=== PATIENT | male | born 1960 | race Two or more races ===

== ENCOUNTER 2017-12-17 21:31 | Inpatient (IN) | payer MEDICAID ==
[~2017-12-17] VITALS: Ht 167.6 cm; Wt 82.6 kg
[2017-12-17 21:57] LABS: BASOPHILS % (AUTO) 0.1 % (0-1); EOSINOPHILS # (AUTO) 0.2 X10'3 (0-0.9); EOSINOPHILS % (AUTO) 1.4 % (0-6); LYMPHOCYTES # (AUTO) 1.1 X10'3 (1.1-4.8); LYMPHOCYTES % (AUTO) 8.5 % (21-51); MEAN CORPUSCULAR HEMOGLOBIN 29.9 PG (27.0-31.0); MEAN CORPUSCULAR HGB CONC 33.8 % (33.0-36.5); MEAN CORPUSCULAR VOLUME 88.6 FL (78-98); MEAN PLATELET VOLUME 8.6 FL (7.4-10.4); MONOCYTES # (AUTO) 0.2 X10'3 (0-0.9); MONOCYTES % (AUTO) 1.6 % (2-12); NEUTROPHILS # (AUTO) 11.5 X10'3 (1.8-7.7); NEUTROPHILS % (AUTO) 88.4 % (42-75); PLATELET COUNT 292 X10'3 (140-440); RED BLOOD COUNT 2.34 X10'6 (4.70-6.10); RED CELL DISTRIBUTION WIDTH 16.2 % (11.5-14.5)
[2017-12-17 22:07] LABS: HEMATOCRIT 20.7 % (42.0-52.0)
[2017-12-17 22:10] LABS: PARTIAL THROMBOPLASTIN TIME 26 SECONDS (22-32); PROTHROMBIN TIME 10.1 SECONDS (9.0-12.0)
[2017-12-17 23:15] LABS: LACTIC SEPSIS 0.4 MMOL/L (0.4-2.0)
[2017-12-17 23:17] LABS: ALANINE AMINOTRANSFERASE 67 U/L (12-78); ALBUMIN 2.3 G/DL (3.4-5.0); ALBUMIN/GLOBULIN RATIO 0.6 (1.1-1.5); ALKALINE PHOSPHATASE 133 IU/L (46-116); ANION GAP 11 (8-16); ASPARTATE AMINO TRANSFERASE 30 U/L (10-37); BILIRUBIN,TOTAL 0.3 MG/DL (0.1-1.0); BLOOD UREA NITROGEN 81 MG/DL (7-18); CALCIUM 7.7 MG/DL (8.5-10.1); CHLORIDE 113 MMOL/L (99-107); GLUCOSE 126 MG/DL (70-104); POTASSIUM 5.9 MMOL/L (3.5-5.1); SODIUM 139 MMOL/L (135-145); TOTAL CARBON DIOXIDE 15.4 MMOL/L (24-32); TOTAL PROTEIN 6.2 G/DL (6.4-8.2); eGFR 14 ML/MIN
[2017-12-17 23:23] VITALS: BP 173/78
[2017-12-17 23:38] VITALS: BP 164/78
[2017-12-18] VITALS (25 sets, daily range): BP systolic 148–200; BP diastolic 63–104
[2017-12-18 00:09] LABS: LIPASE 264 U/L (73-393)
[2017-12-18] MEDS ORDERED: ondansetron/PF 4mg/2ml inj IV ONE (00:20)
[2017-12-18] MEDS ORDERED: morphine 2 MG/ML inj. syringe IV ONE (00:20)
[2017-12-18] MEDS ORDERED: pantoprazole 40 MG vial IV ONE (00:25)
[2017-12-18] MEDS: pantoprazole 40MG/NS 100ML BAG 100 ML IV SCH ×2 (00:44→05:32)
[2017-12-18] MEDS ORDERED: glucagon, human recombinant 1mg kit SUBCUT PRN (00:45)
[2017-12-18] MEDS ORDERED: dextrose 50%-water 50ml dispensing syringe IV PRN ×2 (00:45)
[2017-12-18] MEDS ORDERED: ondansetron/PF 4mg/2ml inj IV PRN (00:45)
[2017-12-18] MEDS ORDERED: MESSAGE TO PHARMACY PO ONE (00:45)
[2017-12-18] MEDS ORDERED: dextrose ORAL solution 15 GM/59 ML bottle PO PRN ×2 (00:45)
[2017-12-18] MEDS ORDERED: acetaminophen 325mg tablet PO PRN ×2 (00:45)
[2017-12-18] MEDS ORDERED: sodium bicarbonate (8.4%) inj. 150 MEQ in dextrose 5%-water 1,000 ML IV SCH (00:50)
[2017-12-18] MEDS ORDERED: DILT240C PO (02:26)
[2017-12-18] MEDS ORDERED: GLIM1TAB46 PO (02:27)
[2017-12-18] MEDS ORDERED: ATOR80TA PO (02:28)
[2017-12-18] MEDS ORDERED: VALS1TAB79 PO (02:29)
[2017-12-18] MEDS ORDERED: EMPA10TA PO (02:29)
[2017-12-18] MEDS: morphine 2 MG/ML inj. syringe IV PRN ×4 (02:36→15:04)
[2017-12-18] MEDS ORDERED: sodium bicarbonate (8.4%) 1 mEq/ml syringe ONE (03:05)
[2017-12-18 05:41] LABS: BASOPHILS % (AUTO) 0.1 % (0-1); EOSINOPHILS # (AUTO) 0.2 X10'3 (0-0.9); EOSINOPHILS % (AUTO) 1.5 % (0-6); HEMATOCRIT 28.4 % (42.0-52.0); HEMOGLOBIN 9.8 g/dl (14.0-17.9); LYMPHOCYTES # (AUTO) 1.6 X10'3 (1.1-4.8); LYMPHOCYTES % (AUTO) 13.8 % (21-51); MEAN CORPUSCULAR HEMOGLOBIN 30.6 PG (27.0-31.0); MEAN CORPUSCULAR HGB CONC 34.3 % (33.0-36.5); MEAN CORPUSCULAR VOLUME 89.2 FL (78-98); MEAN PLATELET VOLUME 8.6 FL (7.4-10.4); MONOCYTES # (AUTO) 0.6 X10'3 (0-0.9); MONOCYTES % (AUTO) 4.8 % (2-12); NEUTROPHILS # (AUTO) 9.5 X10'3 (1.8-7.7); NEUTROPHILS % (AUTO) 79.8 % (42-75); PLATELET COUNT 259 X10'3 (140-440); RED BLOOD COUNT 3.19 X10'6 (4.70-6.10); RED CELL DISTRIBUTION WIDTH 15.4 % (11.5-14.5); WHITE BLOOD COUNT 11.9 X10'3 (4.5-11.0)
[2017-12-18 05:59] LABS: ALANINE AMINOTRANSFERASE 63 U/L (12-78); ALBUMIN 2.2 G/DL (3.4-5.0); ALBUMIN/GLOBULIN RATIO 0.6 (1.1-1.5); ALKALINE PHOSPHATASE 128 IU/L (46-116); ANION GAP 12 (8-16); ASPARTATE AMINO TRANSFERASE 29 U/L (10-37); BILIRUBIN,TOTAL 0.3 MG/DL (0.1-1.0); BLOOD UREA NITROGEN 77 MG/DL (7-18); BUN/CREATININE RATIO 17.5 (5.4-32.0); CALCIUM 7.8 MG/DL (8.5-10.1); CHLORIDE 115 MMOL/L (99-107); GLUCOSE 85 MG/DL (70-104); MAGNESIUM 1.8 MG/DL (1.5-2.4); PHOSPHORUS 4.8 MG/DL (2.3-4.5); POTASSIUM 5.8 MMOL/L (3.5-5.1); SODIUM 143 MMOL/L (135-145); TOTAL CARBON DIOXIDE 16.5 MMOL/L (24-32); TOTAL PROTEIN 5.9 G/DL (6.4-8.2); eGFR 14 ML/MIN
[2017-12-18] MEDS: diltiazem CD 120mg capsule (once-daily) PO SCH (08:47)
[2017-12-18] MEDS: HYDROchlorothiazide 12.5mg capsule PO SCH (08:47)
[2017-12-18 10:26] LABS: CLARITY,URINE CLEAR (Clear); COLOR,URINE STRAW (Yellow); GLUCOSE, URINE 500 mg/dl (Neg); KETONES,URINE NEGATIVE (Neg); LEUKOCYTE ESTERASE ,URINE NEGATIVE (Neg); NITRITES, URINE NEGATIVE (Neg); OCCULT BLOOD,URINE MODERATE (Neg); PH,URINE 6.5 (4.8-8.0); PROTEIN,URINE >=300 mg/dl (Neg); UROBILINOGEN,URINE 0.2 E.U/dL (0.2-1.0)
[2017-12-18 10:32] LABS: UA COLLECTION TYPE NON-SPECIFIED
[2017-12-18 10:33] LABS: BACTERIA,URINE NONE SEEN /HPF (Neg); MUCUS STRANDS NONE SEEN /LPF (Neg); RBC,URINE 0-2 /HPF (0-2); SQUAMOUS EPITHELIAL CELL,UR NONE SEEN /LPF (FEW); WBC,URINE NONE SEEN /HPF (0-4)
[2017-12-18] MEDS: sodium bicarbonate (8.4%) inj. 100 MEQ in dextrose 5%-water 1,000 ML IV SCH ×2 (14:17→21:00)
[2017-12-18] MEDS: pantoprazole 40mg Tablet.DR PO SCH (20:59)
[2017-12-18] MEDS: atorvastatin 20mg tablet PO SCH (20:59)
[2017-12-18] MEDS: insulin glargine (Lantus) pen - multi-dose SQ SCH (21:06)
[2017-12-19] VITALS: BP 186/93
[2017-12-19] MEDS: sodium bicarbonate (8.4%) inj. 100 MEQ in dextrose 5%-water 1,000 ML IV SCH ×2 (01:30→13:40)
[2017-12-19 06:08] LABS: BASOPHILS # (AUTO) 0.1 X10'3 (0-0.2); BASOPHILS % (AUTO) 0.5 % (0-1); EOSINOPHILS # (AUTO) 0.6 X10'3 (0-0.9); EOSINOPHILS % (AUTO) 5.4 % (0-6); HEMATOCRIT 26.6 % (42.0-52.0); LYMPHOCYTES # (AUTO) 2.9 X10'3 (1.1-4.8); LYMPHOCYTES % (AUTO) 26.1 % (21-51); MEAN CORPUSCULAR HEMOGLOBIN 30.3 PG (27.0-31.0); MEAN CORPUSCULAR HGB CONC 33.9 % (33.0-36.5); MEAN CORPUSCULAR VOLUME 89.4 FL (78-98); MEAN PLATELET VOLUME 8.3 FL (7.4-10.4); MONOCYTES # (AUTO) 0.9 X10'3 (0-0.9); MONOCYTES % (AUTO) 8.2 % (2-12); NEUTROPHILS # (AUTO) 6.6 X10'3 (1.8-7.7); NEUTROPHILS % (AUTO) 59.8 % (42-75); PLATELET COUNT 248 X10'3 (140-440); RED BLOOD COUNT 2.97 X10'6 (4.70-6.10); RED CELL DISTRIBUTION WIDTH 15.4 % (11.5-14.5)
[2017-12-19 06:34] LABS: ALANINE AMINOTRANSFERASE 48 U/L (12-78); ALBUMIN 1.9 G/DL (3.4-5.0); ALBUMIN/GLOBULIN RATIO 0.5 (1.1-1.5); ALKALINE PHOSPHATASE 120 IU/L (46-116); AMYLASE 92 U/L (25-115); ANION GAP 8 (8-16); ASPARTATE AMINO TRANSFERASE 23 U/L (10-37); BILIRUBIN,TOTAL 0.2 MG/DL (0.1-1.0); BLOOD UREA NITROGEN 66 MG/DL (7-18); BUN/CREATININE RATIO 15.3 (5.4-32.0); CALCIUM 7.5 MG/DL (8.5-10.1); CHLORIDE 109 MMOL/L (99-107); GLUCOSE 168 MG/DL (70-104); LIPASE 164 U/L (73-393); MAGNESIUM 1.7 MG/DL (1.5-2.4); PHOSPHORUS 4.7 MG/DL (2.3-4.5); SODIUM 140 MMOL/L (135-145); TOTAL CARBON DIOXIDE 23.3 MMOL/L (24-32); TOTAL PROTEIN 5.4 G/DL (6.4-8.2); eGFR 14 ML/MIN
[2017-12-19 07:00] VITALS: BP 165/87
[2017-12-19] MEDS ORDERED: pantoprazole 40mg Tablet.DR PO SCH (07:30)
[2017-12-19] MEDS: HYDROchlorothiazide 12.5mg capsule PO SCH (09:04)
[2017-12-19] MEDS: diltiazem CD 120mg capsule (once-daily) PO SCH (09:04)
[2017-12-19] MEDS: pantoprazole 40mg Tablet.DR PO SCH ×2 (09:04→20:10)
[2017-12-19] MEDS: insulin Lispro (HumaLOG) vial - multi-dose SQ SCH ×3 (09:09→18:50)
[2017-12-19] MEDS ORDERED: FLU VACC QS2017-18 36MOS UP/PF 60 MCG/0.5 ML SYRINGE IMVAC ONE (10:00)
[2017-12-19] MEDS ORDERED: pneumococcal 23-VAL P-sac vacc 25 mcg/0.5ml vial IMVAC ONE (10:00)
[2017-12-19 14:23] LABS: CLARITY,URINE CLEAR (Clear); COLOR,URINE YELLOW (Yellow); GLUCOSE, URINE 500 mg/dl (Neg); KETONES,URINE NEGATIVE (Neg); LEUKOCYTE ESTERASE ,URINE NEGATIVE (Neg); NITRITES, URINE NEGATIVE (Neg); OCCULT BLOOD,URINE MODERATE (Neg); PROTEIN,URINE >=300 mg/dl (Neg); UROBILINOGEN,URINE 0.2 E.U/dL (0.2-1.0)
[2017-12-19 14:26] LABS: TOTAL PROTEIN,URINE RANDOM 538.2 MG/DL
[2017-12-19 14:39] LABS: UA COLLECTION TYPE VOIDED
[2017-12-19 14:40] LABS: BACTERIA,URINE NONE SEEN /HPF (Neg); RBC,URINE 0-2 /HPF (0-2)
[2017-12-19 14:42] LABS: WBC,URINE 0-4 /HPF (0-4)
[2017-12-19 14:44] LABS: MUCUS STRANDS NONE SEEN /LPF (Neg); SQUAMOUS EPITHELIAL CELL,UR NONE SEEN /LPF (FEW)
[2017-12-19 15:23] LABS: UA EOSINOPHILS NO EOS /HPF
[2017-12-19] MEDS: normal saline 1000ml 1,000 ML IV SCH ×2 (16:59→20:10)
[2017-12-19 20:00] VITALS: BP 166/77
[2017-12-19] MEDS: atorvastatin 20mg tablet PO SCH (20:10)
[2017-12-19] MEDS: insulin glargine (Lantus) pen - multi-dose SQ SCH (21:08)
[2017-12-20] VITALS (16 sets, daily range): BP systolic 127–198; BP diastolic 67–99
[2017-12-20 05:33] LABS: BASOPHILS % (AUTO) 0.4 % (0-1); EOSINOPHILS # (AUTO) 0.7 X10'3 (0-0.9); EOSINOPHILS % (AUTO) 5.5 % (0-6); HEMATOCRIT 26.5 % (42.0-52.0); HEMOGLOBIN 9.2 g/dl (14.0-17.9); LYMPHOCYTES # (AUTO) 2.5 X10'3 (1.1-4.8); LYMPHOCYTES % (AUTO) 19.2 % (21-51); MEAN CORPUSCULAR HEMOGLOBIN 30.7 PG (27.0-31.0); MEAN CORPUSCULAR HGB CONC 34.8 % (33.0-36.5); MEAN CORPUSCULAR VOLUME 88.1 FL (78-98); MEAN PLATELET VOLUME 8.5 FL (7.4-10.4); MONOCYTES # (AUTO) 0.9 X10'3 (0-0.9); NEUTROPHILS # (AUTO) 8.9 X10'3 (1.8-7.7); NEUTROPHILS % (AUTO) 67.9 % (42-75); PLATELET COUNT 244 X10'3 (140-440); RED BLOOD COUNT 3.01 X10'6 (4.70-6.10); RED CELL DISTRIBUTION WIDTH 14.8 % (11.5-14.5); WHITE BLOOD COUNT 13.1 X10'3 (4.5-11.0)
[2017-12-20 05:43] LABS: ALANINE AMINOTRANSFERASE 40 U/L (12-78); ALBUMIN 1.9 G/DL (3.4-5.0); ALBUMIN/GLOBULIN RATIO 0.5 (1.1-1.5); ALKALINE PHOSPHATASE 126 IU/L (46-116); AMYLASE 91 U/L (25-115); ANION GAP 8 (8-16); ASPARTATE AMINO TRANSFERASE 26 U/L (10-37); BILIRUBIN,TOTAL 0.2 MG/DL (0.1-1.0); BLOOD UREA NITROGEN 63 MG/DL (7-18); CALCIUM 7.5 MG/DL (8.5-10.1); CHLORIDE 108 MMOL/L (99-107); GLUCOSE 92 MG/DL (70-104); LIPASE 114 U/L (73-393); MAGNESIUM 1.4 MG/DL (1.5-2.4); PHOSPHORUS 5.1 MG/DL (2.3-4.5); SODIUM 141 MMOL/L (135-145); TOTAL CARBON DIOXIDE 25.2 MMOL/L (24-32); TOTAL PROTEIN 5.5 G/DL (6.4-8.2); eGFR 15 ML/MIN
[2017-12-20 05:48] LABS: POTASSIUM 4.9 MMOL/L (3.5-5.1)
[2017-12-20] MEDS: diltiazem CD 120mg capsule (once-daily) PO SCH (07:58)
[2017-12-20] MEDS: pantoprazole 40mg Tablet.DR PO SCH ×2 (07:58→20:01)
[2017-12-20] MEDS: HYDROchlorothiazide 12.5mg capsule PO SCH (07:58)
[2017-12-20] MEDS ORDERED: fentaNYL/PF 50MCG/1 ML 2ML syringe ONE (12:15)
[2017-12-20] MEDS ORDERED: MIDAZolam 1mg/ml 10ml vial ONE (12:15)
[2017-12-20] MEDS ORDERED: LIDOcaine Viscous 15ml cup ONE (12:15)
[2017-12-20] MEDS ORDERED: normal saline 1000ml 1,000 ML IV SCH (14:14)
[2017-12-20] MEDS ORDERED: fentaNYL/PF 50MCG/1 ML 2ML syringe IV PRN (14:15)
[2017-12-20] MEDS ORDERED: MIDAZolam 1mg/ml 10ml vial IV PRN (14:15)
[2017-12-20] MEDS ORDERED: LIDOcaine Viscous 15ml cup PO ONE (14:15)
[2017-12-20] MEDS ORDERED: PEG 3350/Na sulf,bicarb,Cl/KCl oral sol 4 liter bottle PO ONE (16:00)
[2017-12-20] MEDS: morphine 2 MG/ML inj. syringe IV PRN (16:45)
[2017-12-20] MEDS: atorvastatin 20mg tablet PO SCH (20:01)
[2017-12-20] MEDS: insulin glargine (Lantus) pen - multi-dose SQ SCH (20:05)
[2017-12-21] VITALS (10 sets, daily range): BP systolic 163–201; BP diastolic 73–112
[2017-12-21 05:20] LABS: BASOPHILS % (AUTO) 0.4 % (0-1); EOSINOPHILS # (AUTO) 0.6 X10'3 (0-0.9); EOSINOPHILS % (AUTO) 6.2 % (0-6); HEMATOCRIT 25.2 % (42.0-52.0); HEMOGLOBIN 8.9 g/dl (14.0-17.9); LYMPHOCYTES # (AUTO) 1.9 X10'3 (1.1-4.8); LYMPHOCYTES % (AUTO) 20.5 % (21-51); MEAN CORPUSCULAR HEMOGLOBIN 30.8 PG (27.0-31.0); MEAN CORPUSCULAR HGB CONC 35.2 % (33.0-36.5); MEAN CORPUSCULAR VOLUME 87.4 FL (78-98); MEAN PLATELET VOLUME 8.2 FL (7.4-10.4); MONOCYTES # (AUTO) 0.9 X10'3 (0-0.9); MONOCYTES % (AUTO) 9.4 % (2-12); NEUTROPHILS % (AUTO) 63.5 % (42-75); PLATELET COUNT 235 X10'3 (140-440); RED BLOOD COUNT 2.88 X10'6 (4.70-6.10); WHITE BLOOD COUNT 9.4 X10'3 (4.5-11.0)
[2017-12-21 05:44] LABS: ALANINE AMINOTRANSFERASE 39 U/L (12-78); ALBUMIN 1.8 G/DL (3.4-5.0); ALBUMIN/GLOBULIN RATIO 0.5 (1.1-1.5); ALKALINE PHOSPHATASE 133 IU/L (46-116); AMYLASE 74 U/L (25-115); ANION GAP 8 (8-16); ASPARTATE AMINO TRANSFERASE 22 U/L (10-37); BILIRUBIN,TOTAL 0.3 MG/DL (0.1-1.0); BLOOD UREA NITROGEN 56 MG/DL (7-18); CALCIUM 7.6 MG/DL (8.5-10.1); CHLORIDE 109 MMOL/L (99-107); GLUCOSE 117 MG/DL (70-104); LIPASE 109 U/L (73-393); MAGNESIUM 1.4 MG/DL (1.5-2.4); PHOSPHORUS 4.6 MG/DL (2.3-4.5); SODIUM 142 MMOL/L (135-145); TOTAL PROTEIN 5.2 G/DL (6.4-8.2); eGFR 16 ML/MIN
[2017-12-21] MEDS: pantoprazole 40mg Tablet.DR PO SCH ×2 (07:48→21:15)
[2017-12-21] MEDS: HYDROchlorothiazide 12.5mg capsule PO SCH (07:48)
[2017-12-21] MEDS: diltiazem CD 120mg capsule (once-daily) PO SCH (07:49)
[2017-12-21] MEDS: normal saline 1000ml 1,000 ML IV SCH (07:51)
[2017-12-21] MEDS ORDERED: MIDAZolam 1mg/ml 10ml vial ONE (14:37)
[2017-12-21] MEDS ORDERED: fentaNYL/PF 50MCG/1 ML 2ML syringe ONE (14:37)
[2017-12-21] MEDS: furosemide 10 MG/1 ML 10ml inj IV SCH ×2 (17:35→21:18)
[2017-12-21] MEDS: cloNIDine 0.1 mg tablet PO SCH ×2 (17:35→21:16)
[2017-12-21] MEDS ORDERED: normal saline 1000ml 1,000 ML IV SCH (17:54)
[2017-12-21] MEDS ORDERED: fentaNYL/PF 50MCG/1 ML 2ML syringe IV PRN (17:55)
[2017-12-21] MEDS ORDERED: MIDAZolam 1mg/ml 10ml vial IV PRN (17:55)
[2017-12-21] MEDS ORDERED: simethicone 40mg/0.6ml oral drops 30ml MC ONE (17:55)
[2017-12-21] MEDS: insulin glargine (Lantus) pen - multi-dose SQ SCH (21:00)
[2017-12-21] MEDS: atorvastatin 20mg tablet PO SCH (21:15)
[2017-12-21] MEDS: morphine 2 MG/ML inj. syringe IV PRN (21:23)
[2017-12-22] VITALS: BP 129/72
[2017-12-22] MEDS: morphine 2 MG/ML inj. syringe IV PRN (00:36)
[2017-12-22 05:18] LABS: BASOPHILS % (AUTO) 0.4 % (0-1); EOSINOPHILS # (AUTO) 0.6 X10'3 (0-0.9); EOSINOPHILS % (AUTO) 6.3 % (0-6); HEMATOCRIT 24.6 % (42.0-52.0); HEMOGLOBIN 8.6 g/dl (14.0-17.9); LYMPHOCYTES # (AUTO) 2.7 X10'3 (1.1-4.8); LYMPHOCYTES % (AUTO) 28.6 % (21-51); MEAN CORPUSCULAR HEMOGLOBIN 30.7 PG (27.0-31.0); MEAN CORPUSCULAR HGB CONC 34.7 % (33.0-36.5); MEAN CORPUSCULAR VOLUME 88.3 FL (78-98); MEAN PLATELET VOLUME 8.2 FL (7.4-10.4); MONOCYTES # (AUTO) 0.9 X10'3 (0-0.9); MONOCYTES % (AUTO) 9.9 % (2-12); NEUTROPHILS # (AUTO) 5.1 X10'3 (1.8-7.7); NEUTROPHILS % (AUTO) 54.8 % (42-75); PLATELET COUNT 219 X10'3 (140-440); RED BLOOD COUNT 2.79 X10'6 (4.70-6.10); WHITE BLOOD COUNT 9.3 X10'3 (4.5-11.0)
[2017-12-22 05:36] LABS: ALANINE AMINOTRANSFERASE 33 U/L (12-78); ALBUMIN 1.6 G/DL (3.4-5.0); ALBUMIN/GLOBULIN RATIO 0.4 (1.1-1.5); ALKALINE PHOSPHATASE 133 IU/L (46-116); ANION GAP 7 (8-16); ASPARTATE AMINO TRANSFERASE 20 U/L (10-37); BILIRUBIN,TOTAL 0.3 MG/DL (0.1-1.0); BLOOD UREA NITROGEN 55 MG/DL (7-18); BUN/CREATININE RATIO 13.6 (5.4-32.0); CALCIUM 7.5 MG/DL (8.5-10.1); CHLORIDE 108 MMOL/L (99-107); CREATININE 4.04 MG/DL (0.60-1.10); GLUCOSE 110 MG/DL (70-104); MAGNESIUM 1.5 MG/DL (1.5-2.4); PHOSPHORUS 5.1 MG/DL (2.3-4.5); POTASSIUM 5.6 MMOL/L (3.5-5.1); SODIUM 140 MMOL/L (135-145); TOTAL CARBON DIOXIDE 25.5 MMOL/L (24-32); TOTAL PROTEIN 5.2 G/DL (6.4-8.2); eGFR 15 ML/MIN
[2017-12-22 07:17] VITALS: BP 163/79
[2017-12-22] MEDS: furosemide 10 MG/1 ML 10ml inj IV SCH (07:36)
[2017-12-22] MEDS: cloNIDine 0.1 mg tablet PO SCH (07:37)
[2017-12-22] MEDS: diltiazem CD 120mg capsule (once-daily) PO SCH (07:37)
[2017-12-22] MEDS: pantoprazole 40mg Tablet.DR PO SCH (07:37)
[2017-12-22 11:15] VITALS: BP 149/77
[2017-12-22] MEDS ORDERED: FURO40TA4 PO (16:22)
[2017-12-22] MEDS ORDERED: PANT40TA4 PO (16:22)
[2017-12-22] MEDS ORDERED: CLON0.1T20 PO (16:22)
== END 2017-12-22 17:30 | disposition home or self-care (01) | DRG 253 ==
LOC: ER 21:33 → ED HOLD 12-18 00:43 → ICU 2S 12-18 01:57 → SUR 3N 12-18 22:51
PROVIDERS: ADMIT Internal Medicine Critical Care Medicine; ATTEND Internal Medicine Critical Care Medicine
PROC: 30233N1 Transfusion of Nonautologous Red Blood Cells into Peripheral Vein, Percutaneous Approach (ICD-10-PCS; 2017-12-17)
PROC: 0DB98ZX Excision of Duodenum, Via Natural or Artificial Opening Endoscopic, Diagnostic (ICD-10-PCS; principal; 2017-12-20)
PROC: 0DB68ZX Excision of Stomach, Via Natural or Artificial Opening Endoscopic, Diagnostic (ICD-10-PCS; 2017-12-20)
PROC: 0DBL8ZZ Excision of Transverse Colon, Via Natural or Artificial Opening Endoscopic (ICD-10-PCS; 2017-12-21)
DX: K55.21 Angiodysplasia of colon with hemorrhage (principal); K85.90 Acute pancreatitis without necrosis or infection, unspecified; E87.2 Acidosis; N18.4 Chronic kidney disease, stage 4 (severe); E11.22 Type 2 diabetes mellitus with diabetic chronic kidney disease; N17.9 Acute kidney failure, unspecified; D62 Acute posthemorrhagic anemia; K29.70 Gastritis, unspecified, without bleeding; K63.5 Polyp of colon; I48.0 Paroxysmal atrial fibrillation; E87.5 Hyperkalemia; K64.8 Other hemorrhoids; K29.80 Duodenitis without bleeding; I12.9 Hypertensive chronic kidney disease with stage 1 through stage 4 chronic kidney disease, or unspecified chronic kidney disease; E11.649 Type 2 diabetes mellitus with hypoglycemia without coma; E87.8 Other disorders of electrolyte and fluid balance, not elsewhere classified; Z79.84 Long term (current) use of oral hypoglycemic drugs; Z79.899 Other long term (current) drug therapy; Z87.891 Personal history of nicotine dependence; Z23 Encounter for immunization
CPT/HCPCS: 36415; 43239; 45380; 45382; 45385; 71250; 74176; 76700; 80053; 81001; 82140; 82150; 82570; 82948; 83036; 83605; 83690; 83735; 83880; 84100; 84133; 84156; 84300; 84540; 85025; 85610; 85730; 86885; 86900; 86901; 86920; 87040; 87070; 87088; 87207; 96375; 99285; A4620; A6213; A6258; C9113; G0500; J1815; J1940; J2250; J2270; J2405; J3010; J7030; J7070; P9016

== ENCOUNTER 2018-02-02 17:54 | Inpatient (IN) | payer BC, MEDICAID ==
[~2018-02-02] VITALS: Ht 167.6 cm; Wt 86.4 kg
[~2018-02-02 17:54] MED LIST: ATOR80TA PO; CLON0.1T20 PO; DILT240C PO; EMPA10TA PO; FURO40TA4 PO; GLIM1TAB46 PO; PANT40TA4 PO; VALS1TAB79 PO
[2018-02-02 18:40] LABS: BASOPHILS % (AUTO) 0.3 % (0-1); EOSINOPHILS # (AUTO) 0.4 X10'3 (0-0.9); EOSINOPHILS % (AUTO) 4.6 % (0-6); HEMOGLOBIN 7.2 g/dl (14.0-17.9); LYMPHOCYTES # (AUTO) 2.3 X10'3 (1.1-4.8); LYMPHOCYTES % (AUTO) 26.2 % (21-51); MEAN CORPUSCULAR HEMOGLOBIN 29.7 PG (27.0-31.0); MEAN CORPUSCULAR HGB CONC 33.4 % (33.0-36.5); MEAN CORPUSCULAR VOLUME 88.9 FL (78-98); MEAN PLATELET VOLUME 8.4 FL (7.4-10.4); MONOCYTES # (AUTO) 0.6 X10'3 (0-0.9); MONOCYTES % (AUTO) 7.4 % (2-12); NEUTROPHILS # (AUTO) 5.4 X10'3 (1.8-7.7); NEUTROPHILS % (AUTO) 61.5 % (42-75); PLATELET COUNT 286 X10'3 (140-440); RED BLOOD COUNT 2.43 X10'6 (4.70-6.10); RED CELL DISTRIBUTION WIDTH 15.5 % (11.5-14.5); WHITE BLOOD COUNT 8.8 X10'3 (4.5-11.0)
[2018-02-02 18:40] LABS: CLARITY,URINE CLEAR (Clear); COLOR,URINE YELLOW (Yellow); GLUCOSE, URINE 250 mg/dl (Neg); KETONES,URINE NEGATIVE (Neg); LEUKOCYTE ESTERASE ,URINE NEGATIVE (Neg); NITRITES, URINE NEGATIVE (Neg); OCCULT BLOOD,URINE MODERATE (Neg); PROTEIN,URINE >=300 mg/dl (Neg); UROBILINOGEN,URINE 0.2 E.U/dL (0.2-1.0)
[2018-02-02 18:47] LABS: HEMATOCRIT 21.6 % (42.0-52.0)
[2018-02-02 18:49] LABS: UA COLLECTION TYPE CLN CATCH MIDSTREAM
[2018-02-02 18:50] LABS: PROTHROMBIN TIME 10.5 SECONDS (9.0-12.0)
[2018-02-02 18:54] LABS: RBC,URINE 0-2 /HPF (0-2); WBC,URINE NONE SEEN /HPF (0-4)
[2018-02-02 18:55] LABS: BACTERIA,URINE NONE SEEN /HPF (Neg); SQUAMOUS EPITHELIAL CELL,UR NONE SEEN /LPF (FEW)
[2018-02-02 18:56] LABS: ALANINE AMINOTRANSFERASE 37 U/L (12-78); ALBUMIN/GLOBULIN RATIO 0.5 (1.1-1.5); ALKALINE PHOSPHATASE 189 IU/L (46-116); ANION GAP 14 (8-16); ASPARTATE AMINO TRANSFERASE 24 U/L (10-37); BILIRUBIN,TOTAL 0.2 MG/DL (0.1-1.0); BLOOD UREA NITROGEN 100 MG/DL (7-18); CALCIUM 6.7 MG/DL (8.5-10.1); CHLORIDE 110 MMOL/L (99-107); CREATININE 5.89 MG/DL (0.60-1.10); GLUCOSE 130 MG/DL (70-104); SODIUM 141 MMOL/L (135-145); TOTAL CARBON DIOXIDE 16.9 MMOL/L (24-32); TOTAL PROTEIN 6.4 G/DL (6.4-8.2); eGFR 10 ML/MIN
[2018-02-02] MEDS ORDERED: normal saline 1000ML IV soln IVB ONE (19:45)
[2018-02-02] MEDS ORDERED: calcium chloride inj. 1,000 MG in normal saline 100ml IV soln 90 ML IV ONE (19:50)
[2018-02-02] MEDS ORDERED: furosemide 10 MG/1 ML 10ml inj IV ONE (19:50)
[2018-02-02] MEDS ORDERED: labetalol 20mg/4ml (5mg/ml) syringe IV ONE (19:55)
[2018-02-02] MEDS ORDERED: pantoprazole IV 80 MG in normal saline 100ml IV soln 100 ML IV ONE (19:55)
[2018-02-02] MEDS ORDERED: pantoprazole 40MG/NS 100ML BAG 100 ML IV ONE (19:55)
[2018-02-02] MEDS ORDERED: temazepam 15mg capsule PO PRN (21:00)
[2018-02-02] MEDS ORDERED: pantoprazole 40 MG vial IV ONE (21:10)
[2018-02-02 21:24] LABS: TOTAL PROTEIN,URINE RANDOM 513.3 MG/DL
[2018-02-02] MEDS ORDERED: sodium polystyrene sulfonate 15gm/60ml oral suspension PO ONE (21:30)
[2018-02-02 21:46] LABS: MAGNESIUM 1.6 MG/DL (1.5-2.4); PHOSPHORUS 5.9 MG/DL (2.3-4.5)
[2018-02-02] MEDS ORDERED: ondansetron/PF 4mg/2ml inj IV PRN (21:50)
[2018-02-02] MEDS ORDERED: mag hydrox/Alum hydrox/simeth 30ml oral suspension PO PRN (21:50)
[2018-02-02] MEDS ORDERED: magnesium 4gm in 100ml NS 100 ML IV PRN (21:50)
[2018-02-02] MEDS ORDERED: potassium Cl 20 mEq SR tablet PO PRN ×2 (21:50)
[2018-02-02] MEDS ORDERED: acetaminophen 325mg tablet PO PRN (21:50)
[2018-02-02] MEDS ORDERED: magnesium hydroxide 30ml (MOM) UD suspension PO PRN (21:50)
[2018-02-02] MEDS ORDERED: magnesium 2GM in 50ml NS 50 ML IV PRN (21:50)
[2018-02-02] MEDS ORDERED: potassium Cl 40MEQ/NS 500ml 500 ML IV PRN ×2 (21:50)
[2018-02-02] MEDS: sodium chloride 0.45% 1,000 ML IV SCH (22:00)
[2018-02-02 22:35] LABS: UA EOSINOPHILS NO EOS /HPF
[2018-02-02 23:57] VITALS: BP 175/92
[2018-02-03] VITALS (14 sets, daily range): BP systolic 145–209; BP diastolic 60–97
[2018-02-03] MEDS ORDERED: heparin, porcine 5000 units/ml vial SQ SCH
[2018-02-03] MEDS ORDERED: amLODIPine 5mg tablet PO ONE (00:50)
[2018-02-03] MEDS: sodium chloride 0.45% 1,000 ML IV SCH ×2 (06:30→20:13)
[2018-02-03] MEDS: diltiazem CD 120mg capsule (once-daily) PO SCH ×2 (06:42→09:49)
[2018-02-03] MEDS: cloNIDine 0.1 mg tablet PO SCH ×3 (06:42→20:08)
[2018-02-03] MEDS ORDERED: HYDROchlorothiazide 12.5mg capsule PO SCH (08:00)
[2018-02-03] MEDS: K and/or MAG REPLACEMENT MC SCH (08:00)
[2018-02-03 08:28] LABS: BASOPHILS % (AUTO) 0.3 % (0-1); EOSINOPHILS # (AUTO) 0.3 X10'3 (0-0.9); HEMATOCRIT 26.5 % (42.0-52.0); LYMPHOCYTES # (AUTO) 1.7 X10'3 (1.1-4.8); LYMPHOCYTES % (AUTO) 22.4 % (21-51); MEAN CORPUSCULAR HEMOGLOBIN 29.6 PG (27.0-31.0); MEAN CORPUSCULAR HGB CONC 33.8 % (33.0-36.5); MEAN CORPUSCULAR VOLUME 87.4 FL (78-98); MEAN PLATELET VOLUME 8.5 FL (7.4-10.4); MONOCYTES # (AUTO) 0.5 X10'3 (0-0.9); MONOCYTES % (AUTO) 6.6 % (2-12); NEUTROPHILS # (AUTO) 5.1 X10'3 (1.8-7.7); NEUTROPHILS % (AUTO) 66.7 % (42-75); PLATELET COUNT 260 X10'3 (140-440); RED BLOOD COUNT 3.03 X10'6 (4.70-6.10); RED CELL DISTRIBUTION WIDTH 15.3 % (11.5-14.5); WHITE BLOOD COUNT 7.7 X10'3 (4.5-11.0)
[2018-02-03 08:55] LABS: ALANINE AMINOTRANSFERASE 42 U/L (12-78); ALBUMIN 1.9 G/DL (3.4-5.0); ALBUMIN/GLOBULIN RATIO 0.5 (1.1-1.5); ALKALINE PHOSPHATASE 178 IU/L (46-116); ANION GAP 16 (8-16); ASPARTATE AMINO TRANSFERASE 21 U/L (10-37); BILIRUBIN,TOTAL 0.3 MG/DL (0.1-1.0); BLOOD UREA NITROGEN 87 MG/DL (7-18); BUN/CREATININE RATIO 15.8 (5.4-32.0); CALCIUM 6.9 MG/DL (8.5-10.1); CHLORIDE 113 MMOL/L (99-107); CHOL/HDL RATIO 3.3 (0.00-4.99); CHOLESTEROL 170 MG/DL (0-200); GLUCOSE 123 MG/DL (70-104); HDL CHOLESTEROL 51 MG/DL (35-60); LDL CHOLESTEROL 91 MG/DL (50-100); MAGNESIUM 1.4 MG/DL (1.5-2.4); POTASSIUM 4.8 MMOL/L (3.5-5.1); SODIUM 145 MMOL/L (135-145); TOTAL CARBON DIOXIDE 16.3 MMOL/L (24-32); TOTAL PROTEIN 6.1 G/DL (6.4-8.2); TRIGLYCERIDES 147 MG/DL (20-135); eGFR 11 ML/MIN
[2018-02-03] MEDS: labetalol 100mg tablet PO SCH ×2 (10:24→20:08)
[2018-02-03] MEDS: hydrALAZINE 25 MG tablet PO SCH ×3 (10:24→23:59)
[2018-02-03] MEDS ORDERED: fentaNYL/PF 50MCG/1 ML 2ML syringe ONE (14:23)
[2018-02-03] MEDS ORDERED: LIDOcaine Viscous 15ml cup ONE (14:24)
[2018-02-03] MEDS ORDERED: MIDAZolam 5mg/ml 2ml vial ONE (14:24)
[2018-02-03] MEDS ORDERED: glucagon, human recombinant 1mg kit ONE (18:24)
[2018-02-03] MEDS: atorvastatin 20mg tablet PO SCH (20:08)
[2018-02-03] MEDS: hyDRALAzine 10mg tablet PO SCH (20:09)
[2018-02-03] MEDS: magnesium Cl slow-release 64mg tablet PO PRN (23:59)
[2018-02-04] VITALS (7 sets, daily range): BP systolic 117–171; BP diastolic 57–74
[2018-02-04 05:51] LABS: BASOPHILS % (AUTO) 0.5 % (0-1); EOSINOPHILS # (AUTO) 0.4 X10'3 (0-0.9); EOSINOPHILS % (AUTO) 4.7 % (0-6); HEMATOCRIT 24.1 % (42.0-52.0); HEMOGLOBIN 8.2 g/dl (14.0-17.9); LYMPHOCYTES # (AUTO) 2.1 X10'3 (1.1-4.8); MEAN CORPUSCULAR HEMOGLOBIN 29.8 PG (27.0-31.0); MEAN CORPUSCULAR HGB CONC 33.9 % (33.0-36.5); MEAN CORPUSCULAR VOLUME 87.9 FL (78-98); MEAN PLATELET VOLUME 8.9 FL (7.4-10.4); MONOCYTES # (AUTO) 0.6 X10'3 (0-0.9); MONOCYTES % (AUTO) 7.6 % (2-12); NEUTROPHILS # (AUTO) 4.5 X10'3 (1.8-7.7); NEUTROPHILS % (AUTO) 59.2 % (42-75); PLATELET COUNT 216 X10'3 (140-440); RED BLOOD COUNT 2.74 X10'6 (4.70-6.10); RED CELL DISTRIBUTION WIDTH 15.7 % (11.5-14.5); WHITE BLOOD COUNT 7.6 X10'3 (4.5-11.0)
[2018-02-04 06:49] LABS: ALANINE AMINOTRANSFERASE 34 U/L (12-78); ALBUMIN 1.6 G/DL (3.4-5.0); ALBUMIN/GLOBULIN RATIO 0.4 (1.1-1.5); ALKALINE PHOSPHATASE 152 IU/L (46-116); ANION GAP 13 (8-16); ASPARTATE AMINO TRANSFERASE 20 U/L (10-37); BILIRUBIN,TOTAL 0.2 MG/DL (0.1-1.0); BLOOD UREA NITROGEN 83 MG/DL (7-18); BUN/CREATININE RATIO 15.7 (5.4-32.0); CALCIUM 6.5 MG/DL (8.5-10.1); CHLORIDE 112 MMOL/L (99-107); CREATININE 5.29 MG/DL (0.60-1.10); GLUCOSE 123 MG/DL (70-104); MAGNESIUM 1.5 MG/DL (1.5-2.4); POTASSIUM 4.6 MMOL/L (3.5-5.1); SODIUM 141 MMOL/L (135-145); TOTAL CARBON DIOXIDE 15.7 MMOL/L (24-32); TOTAL PROTEIN 5.3 G/DL (6.4-8.2); eGFR 11 ML/MIN
[2018-02-04] MEDS: K and/or MAG REPLACEMENT MC SCH (08:00)
[2018-02-04] MEDS: sodium chloride 0.45% 1,000 ML IV SCH ×2 (09:26→20:27)
[2018-02-04] MEDS: cloNIDine 0.1 mg tablet PO SCH ×2 (09:29→19:20)
[2018-02-04] MEDS: magnesium Cl slow-release 64mg tablet PO PRN (09:29)
[2018-02-04] MEDS: hydrALAZINE 25 MG tablet PO SCH ×2 (09:29→16:00)
[2018-02-04] MEDS: labetalol 100mg tablet PO SCH (09:30)
[2018-02-04] MEDS: diltiazem CD 120mg capsule (once-daily) PO SCH (09:30)
[2018-02-04] MEDS: hyDRALAzine 10mg tablet PO SCH (16:30)
[2018-02-04] MEDS ORDERED: insulin Lispro (HumaLOG) vial - multi-dose SQ SCH (17:55)
[2018-02-04] MEDS ORDERED: MESSAGE TO PHARMACY PO ONE (17:55)
[2018-02-04] MEDS ORDERED: dextrose ORAL solution 15 GM/59 ML bottle PO PRN ×2 (17:55)
[2018-02-04] MEDS ORDERED: glucagon, human recombinant 1mg kit SUBCUT PRN (17:55)
[2018-02-04] MEDS ORDERED: dextrose 50%-water 50ml dispensing syringe IV PRN ×2 (17:55)
[2018-02-04] MEDS ORDERED: hydrALAZINE 25 MG tablet PO PRN (20:00)
[2018-02-04] MEDS ORDERED: insulin glargine (Lantus) pen - multi-dose SQ ONE (21:32)
[2018-02-04] MEDS: insulin glargine (Lantus) pen - multi-dose SQ SCH (21:43)
[2018-02-04] MEDS: atorvastatin 20mg tablet PO SCH (21:44)
[2018-02-05 03:00] VITALS: BP 174/73
[2018-02-05 06:29] LABS: BASOPHILS % (AUTO) 0.5 % (0-1); EOSINOPHILS # (AUTO) 0.4 X10'3 (0-0.9); EOSINOPHILS % (AUTO) 5.9 % (0-6); HEMATOCRIT 24.9 % (42.0-52.0); HEMOGLOBIN 8.6 g/dl (14.0-17.9); LYMPHOCYTES # (AUTO) 2.2 X10'3 (1.1-4.8); LYMPHOCYTES % (AUTO) 29.7 % (21-51); MEAN CORPUSCULAR HGB CONC 34.4 % (33.0-36.5); MEAN CORPUSCULAR VOLUME 87.4 FL (78-98); MEAN PLATELET VOLUME 8.9 FL (7.4-10.4); MONOCYTES # (AUTO) 0.6 X10'3 (0-0.9); MONOCYTES % (AUTO) 7.3 % (2-12); NEUTROPHILS # (AUTO) 4.3 X10'3 (1.8-7.7); NEUTROPHILS % (AUTO) 56.6 % (42-75); PLATELET COUNT 230 X10'3 (140-440); RED BLOOD COUNT 2.85 X10'6 (4.70-6.10); RED CELL DISTRIBUTION WIDTH 15.9 % (11.5-14.5); WHITE BLOOD COUNT 7.5 X10'3 (4.5-11.0)
[2018-02-05 06:30] VITALS: BP 187/79
[2018-02-05 06:59] LABS: ALANINE AMINOTRANSFERASE 34 U/L (12-78); ALBUMIN 1.6 G/DL (3.4-5.0); ALBUMIN/GLOBULIN RATIO 0.4 (1.1-1.5); ALKALINE PHOSPHATASE 159 IU/L (46-116); ANION GAP 15 (8-16); ASPARTATE AMINO TRANSFERASE 18 U/L (10-37); BILIRUBIN,TOTAL 0.3 MG/DL (0.1-1.0); BLOOD UREA NITROGEN 74 MG/DL (7-18); BUN/CREATININE RATIO 14.3 (5.4-32.0); CALCIUM 6.6 MG/DL (8.5-10.1); CHLORIDE 110 MMOL/L (99-107); CREATININE 5.19 MG/DL (0.60-1.10); GLUCOSE 102 MG/DL (70-104); MAGNESIUM 1.4 MG/DL (1.5-2.4); POTASSIUM 4.8 MMOL/L (3.5-5.1); SODIUM 140 MMOL/L (135-145); TOTAL CARBON DIOXIDE 15.5 MMOL/L (24-32); TOTAL PROTEIN 5.5 G/DL (6.4-8.2); eGFR 12 ML/MIN
[2018-02-05] MEDS: K and/or MAG REPLACEMENT MC SCH (08:00)
[2018-02-05] MEDS: diltiazem CD 120mg capsule (once-daily) PO SCH (08:44)
[2018-02-05] MEDS: magnesium Cl slow-release 64mg tablet PO PRN ×2 (08:44→19:09)
[2018-02-05] MEDS: labetalol 100mg tablet PO SCH (08:45)
[2018-02-05] MEDS: cloNIDine 0.1 mg tablet PO SCH ×2 (08:45→19:08)
[2018-02-05] MEDS: sodium chloride 0.45% 1,000 ML IV SCH ×2 (09:47→23:41)
[2018-02-05 11:00] VITALS: BP 169/61
[2018-02-05 15:00] VITALS: BP 166/75
[2018-02-05] MEDS: hyDRALAzine 10mg tablet PO SCH ×2 (16:00→23:36)
[2018-02-05 19:00] VITALS: BP 167/63
[2018-02-05] MEDS: pantoprazole 40mg Tablet.DR PO SCH (19:09)
[2018-02-05] MEDS: insulin glargine (Lantus) pen - multi-dose SQ SCH (21:00)
[2018-02-05] MEDS ORDERED: doxazosin mesylate 2mg tablet PO SCH (21:00)
[2018-02-05] MEDS: atorvastatin 20mg tablet PO SCH (21:17)
[2018-02-05 23:00] VITALS: BP 179/71
[2018-02-06 03:00] VITALS: BP 159/60
[2018-02-06 05:05] LABS: BASOPHILS % (AUTO) 0.6 % (0-1); EOSINOPHILS # (AUTO) 0.4 X10'3 (0-0.9); EOSINOPHILS % (AUTO) 5.4 % (0-6); HEMATOCRIT 24.6 % (42.0-52.0); HEMOGLOBIN 8.3 g/dl (14.0-17.9); LYMPHOCYTES # (AUTO) 2.3 X10'3 (1.1-4.8); MEAN CORPUSCULAR HEMOGLOBIN 29.8 PG (27.0-31.0); MEAN CORPUSCULAR HGB CONC 33.7 % (33.0-36.5); MEAN CORPUSCULAR VOLUME 88.6 FL (78-98); MEAN PLATELET VOLUME 8.4 FL (7.4-10.4); MONOCYTES # (AUTO) 0.5 X10'3 (0-0.9); PLATELET COUNT 222 X10'3 (140-440); RED BLOOD COUNT 2.77 X10'6 (4.70-6.10); RED CELL DISTRIBUTION WIDTH 14.8 % (11.5-14.5); WHITE BLOOD COUNT 7.3 X10'3 (4.5-11.0)
[2018-02-06 05:31] LABS: ALANINE AMINOTRANSFERASE 32 U/L (12-78); ALBUMIN 1.5 G/DL (3.4-5.0); ALBUMIN/GLOBULIN RATIO 0.4 (1.1-1.5); ALKALINE PHOSPHATASE 156 IU/L (46-116); ANION GAP 17 (8-16); ASPARTATE AMINO TRANSFERASE 20 U/L (10-37); BILIRUBIN,TOTAL 0.2 MG/DL (0.1-1.0); BLOOD UREA NITROGEN 73 MG/DL (7-18); BUN/CREATININE RATIO 14.8 (5.4-32.0); CALCIUM 6.7 MG/DL (8.5-10.1); CHLORIDE 109 MMOL/L (99-107); CREATININE 4.94 MG/DL (0.60-1.10); GLUCOSE 110 MG/DL (70-104); MAGNESIUM 1.5 MG/DL (1.5-2.4); POTASSIUM 4.7 MMOL/L (3.5-5.1); SODIUM 139 MMOL/L (135-145); TOTAL PROTEIN 5.3 G/DL (6.4-8.2); eGFR 12 ML/MIN
[2018-02-06 05:36] LABS: TOTAL CARBON DIOXIDE 13.1 MMOL/L (24-32)
[2018-02-06 06:30] VITALS: BP 183/75
[2018-02-06] MEDS: labetalol 100mg tablet PO SCH (07:53)
[2018-02-06] MEDS: pantoprazole 40mg Tablet.DR PO SCH (07:53)
[2018-02-06] MEDS: diltiazem CD 120mg capsule (once-daily) PO SCH (07:53)
[2018-02-06] MEDS: hyDRALAzine 10mg tablet PO SCH (07:53)
[2018-02-06] MEDS: cloNIDine 0.1 mg tablet PO SCH (07:53)
[2018-02-06] MEDS: K and/or MAG REPLACEMENT MC SCH (07:56)
[2018-02-06 11:00] VITALS: BP 174/76
[2018-02-06] MEDS ORDERED: HYDR-4069 PO (11:17)
[2018-02-06] MEDS ORDERED: DOXA2TAB13 PO (11:17)
[2018-02-06] MEDS ORDERED: PANT-47 PO (11:20)
[2018-02-06] MEDS: sodium chloride 0.45% 1,000 ML IV SCH (12:27)
[2018-02-06] MEDS ORDERED: sodium bicarbonate 650mg tablet PO SCH (13:00)
== END 2018-02-06 14:00 | disposition home or self-care (01) | DRG 229 ==
LOC: ER 17:55 → ED HOLD 21:47 → PCU 3S 02-03 17:50
PROVIDERS: ADMIT Internal Medicine; ATTEND Family Medicine
PROC: 0W3P4ZZ Control Bleeding in Gastrointestinal Tract, Percutaneous Endoscopic Approach (ICD-10-PCS; principal; 2018-02-03)
PROC: 30233N1 Transfusion of Nonautologous Red Blood Cells into Peripheral Vein, Percutaneous Approach (ICD-10-PCS; 2018-02-03)
DX: K31.811 Angiodysplasia of stomach and duodenum with bleeding (principal); E43 Unspecified severe protein-calorie malnutrition; E87.2 Acidosis; N17.9 Acute kidney failure, unspecified; N18.4 Chronic kidney disease, stage 4 (severe); I13.0 Hypertensive heart and chronic kidney disease with heart failure and stage 1 through stage 4 chronic kidney disease, or unspecified chronic kidney disease; I50.22 Chronic systolic (congestive) heart failure; D62 Acute posthemorrhagic anemia; I48.91 Unspecified atrial fibrillation; E83.51 Hypocalcemia; E83.39 Other disorders of phosphorus metabolism; E87.5 Hyperkalemia; K21.0 Gastro-esophageal reflux disease with esophagitis; E11.22 Type 2 diabetes mellitus with diabetic chronic kidney disease; E78.5 Hyperlipidemia, unspecified; K29.70 Gastritis, unspecified, without bleeding; Z79.899 Other long term (current) drug therapy; Z68.30 Body mass index [BMI] 30.0-30.9, adult
CPT/HCPCS: 36415; 76775; 80053; 80061; 81001; 82570; 82948; 83036; 83605; 83735; 84100; 84133; 84156; 84300; 85025; 85610; 86885; 86900; 86901; 86920; 87040; 87070; 87207; 93005; 96365; 96367; 96375; 99285; A4620; C9113; G0500; J1610; J1815; J1940; J2250; J3010; J3490; J7030; P9016

== ENCOUNTER 2018-02-08 13:19 | Inpatient (IN) | payer MEDICAID, MEDICARE ==
[~2018-02-08] VITALS: Ht 170.2 cm; Wt 80.2 kg
[~2018-02-08 13:19] MED LIST changes: +DOXA2TAB13 PO; -FURO40TA4 PO; +HYDR-4069 PO; +PANT-47 PO; -PANT40TA4 PO
[2018-02-08 14:26] LABS: BASOPHILS % (AUTO) 0.6 % (0-1); EOSINOPHILS # (AUTO) 0.4 X10'3 (0-0.9); EOSINOPHILS % (AUTO) 5.1 % (0-6); HEMATOCRIT 25.4 % (42.0-52.0); HEMOGLOBIN 8.4 g/dl (14.0-17.9); LYMPHOCYTES # (AUTO) 1.7 X10'3 (1.1-4.8); MEAN CORPUSCULAR HEMOGLOBIN 29.7 PG (27.0-31.0); MEAN CORPUSCULAR HGB CONC 33.2 % (33.0-36.5); MEAN CORPUSCULAR VOLUME 89.5 FL (78-98); MEAN PLATELET VOLUME 8.7 FL (7.4-10.4); MONOCYTES # (AUTO) 0.5 X10'3 (0-0.9); MONOCYTES % (AUTO) 6.8 % (2-12); NEUTROPHILS % (AUTO) 65.5 % (42-75); PLATELET COUNT 235 X10'3 (140-440); RED BLOOD COUNT 2.84 X10'6 (4.70-6.10); RED CELL DISTRIBUTION WIDTH 14.9 % (11.5-14.5); WHITE BLOOD COUNT 7.7 X10'3 (4.5-11.0)
[2018-02-08 14:39] LABS: ALANINE AMINOTRANSFERASE 33 U/L (12-78); ALBUMIN 1.8 G/DL (3.4-5.0); ALBUMIN/GLOBULIN RATIO 0.4 (1.1-1.5); ALKALINE PHOSPHATASE 175 IU/L (46-116); ANION GAP 11 (8-16); ASPARTATE AMINO TRANSFERASE 20 U/L (10-37); BILIRUBIN,TOTAL 0.2 MG/DL (0.1-1.0); BLOOD UREA NITROGEN 88 MG/DL (7-18); BUN/CREATININE RATIO 14.7 (5.4-32.0); CALCIUM 6.7 MG/DL (8.5-10.1); CHLORIDE 112 MMOL/L (99-107); CREATININE 5.98 MG/DL (0.60-1.10); GLUCOSE 205 MG/DL (70-104); LIPASE 346 U/L (73-393); SODIUM 139 MMOL/L (135-145); TOTAL CARBON DIOXIDE 16.1 MMOL/L (24-32); eGFR 10 ML/MIN
[2018-02-08] MEDS ORDERED: dextrose 50%-water 50ml dispensing syringe IV ONE (15:10)
[2018-02-08] MEDS ORDERED: insulin regular, human 10 units/0.1 ml syringe IV ONE (15:10)
[2018-02-08] MEDS ORDERED: calcium chloride 100 MG/1 ML inj IV ONE (15:10)
[2018-02-08] MEDS ORDERED: sodium polystyrene sulfonate 15gm/60ml oral suspension PO ONE (15:10)
[2018-02-08] MEDS ORDERED: sodium bicarbonate (8.4%) 1 mEq/ml syringe IV ONE (15:40)
[2018-02-08] MEDS ORDERED: mag hydrox/Alum hydrox/simeth 30ml oral suspension PO PRN (16:05)
[2018-02-08] MEDS ORDERED: acetaminophen 325mg tablet PO PRN (16:05)
[2018-02-08] MEDS ORDERED: magnesium hydroxide 30ml (MOM) UD suspension PO PRN (16:05)
[2018-02-08] MEDS ORDERED: ondansetron/PF 4mg/2ml inj IV PRN (16:05)
[2018-02-08] MEDS ORDERED: bisacodyl 10mg suppository rectal RC PRN (16:05)
[2018-02-08] MEDS ORDERED: insulin Lispro (HumaLOG) vial - multi-dose SQ SCH (16:25)
[2018-02-08] MEDS ORDERED: MESSAGE TO PHARMACY PO ONE (16:25)
[2018-02-08] MEDS ORDERED: dextrose 50%-water 50ml dispensing syringe IV PRN ×2 (16:25)
[2018-02-08] MEDS ORDERED: glucagon, human recombinant 1mg kit SUBCUT PRN (16:25)
[2018-02-08] MEDS ORDERED: dextrose ORAL solution 15 GM/59 ML bottle PO PRN ×2 (16:25)
[2018-02-08 16:27] LABS: CLARITY,URINE CLEAR (Clear); COLOR,URINE YELLOW (Yellow); GLUCOSE, URINE 500 mg/dl (Neg); KETONES,URINE NEGATIVE (Neg); LEUKOCYTE ESTERASE ,URINE NEGATIVE (Neg); NITRITES, URINE NEGATIVE (Neg); OCCULT BLOOD,URINE SMALL (Neg); PROTEIN,URINE >=300 mg/dl (Neg); UROBILINOGEN,URINE 0.2 E.U/dL (0.2-1.0)
[2018-02-08 16:30] LABS: UA COLLECTION TYPE FOLEY CATH
[2018-02-08 16:34] LABS: BACTERIA,URINE NONE SEEN /HPF (Neg); COARSE GRANULAR CAST 0-3 /LPF (NEGATIVE); SQUAMOUS EPITHELIAL CELL,UR NONE SEEN /LPF (FEW); WBC,URINE NONE SEEN /HPF (0-4)
[2018-02-08 16:47] LABS: MAGNESIUM 1.6 MG/DL (1.5-2.4); PHOSPHORUS 5.2 MG/DL (2.3-4.5)
[2018-02-08] MEDS: cloNIDine 0.1 mg tablet PO SCH (20:15)
[2018-02-08] MEDS: pantoprazole 40mg Tablet.DR PO SCH (20:16)
[2018-02-08] MEDS: docusate sod 100mg capsule PO SCH (20:19)
[2018-02-08] MEDS: doxazosin mesylate 2mg tablet PO SCH (20:43)
[2018-02-08] MEDS: insulin glargine (Lantus) pen - multi-dose SQ SCH (20:50)
[2018-02-08] MEDS: atorvastatin 20mg tablet PO SCH (21:38)
[2018-02-08 21:59] LABS: ALBUMIN 1.9 G/DL (3.4-5.0); ANION GAP 15 (8-16); BLOOD UREA NITROGEN 84 MG/DL (7-18); CALCIUM 6.9 MG/DL (8.5-10.1); CHLORIDE 113 MMOL/L (99-107); CREATININE 6.02 MG/DL (0.60-1.10); GLUCOSE 149 MG/DL (70-104); POTASSIUM 5.3 MMOL/L (3.5-5.1); SODIUM 143 MMOL/L (135-145); TOTAL CARBON DIOXIDE 15.2 MMOL/L (24-32); eGFR 10 ML/MIN
[2018-02-09] VITALS (14 sets, daily range): BP systolic 156–187; BP diastolic 58–95
[2018-02-09] MEDS: hydrALAZINE 25 MG tablet PO SCH ×3 (00:01→15:31)
[2018-02-09 05:07] LABS: BASOPHILS % (AUTO) 0.4 % (0-1); EOSINOPHILS # (AUTO) 0.2 X10'3 (0-0.9); EOSINOPHILS % (AUTO) 2.6 % (0-6); HEMATOCRIT 24.4 % (42.0-52.0); HEMOGLOBIN 8.3 g/dl (14.0-17.9); LYMPHOCYTES # (AUTO) 1.8 X10'3 (1.1-4.8); LYMPHOCYTES % (AUTO) 21.3 % (21-51); MEAN CORPUSCULAR HEMOGLOBIN 29.9 PG (27.0-31.0); MEAN CORPUSCULAR HGB CONC 33.8 % (33.0-36.5); MEAN CORPUSCULAR VOLUME 88.4 FL (78-98); MONOCYTES # (AUTO) 0.5 X10'3 (0-0.9); MONOCYTES % (AUTO) 6.2 % (2-12); NEUTROPHILS # (AUTO) 5.9 X10'3 (1.8-7.7); NEUTROPHILS % (AUTO) 69.5 % (42-75); PLATELET COUNT 223 X10'3 (140-440); RED BLOOD COUNT 2.76 X10'6 (4.70-6.10); RED CELL DISTRIBUTION WIDTH 15.7 % (11.5-14.5); WHITE BLOOD COUNT 8.4 X10'3 (4.5-11.0)
[2018-02-09 05:17] LABS: ALBUMIN 1.6 G/DL (3.4-5.0); ANION GAP 13 (8-16); BLOOD UREA NITROGEN 82 MG/DL (7-18); BUN/CREATININE RATIO 14.2 (5.4-32.0); CALCIUM 6.8 MG/DL (8.5-10.1); CHLORIDE 113 MMOL/L (99-107); CREATININE 5.76 MG/DL (0.60-1.10); GLUCOSE 131 MG/DL (70-104); POTASSIUM 4.7 MMOL/L (3.5-5.1); SODIUM 143 MMOL/L (135-145); eGFR 10 ML/MIN
[2018-02-09] MEDS ORDERED: heparin 1,000unit/ml 10ml vial 10 ML IV ONE (08:00)
[2018-02-09] MEDS ORDERED: epoetin 20,000 units/ml inj IV ONE (08:00)
[2018-02-09] MEDS ORDERED: heparin 1,000 units/ml 10ml inj HE ONE ×2 (08:00)
[2018-02-09] MEDS ORDERED: normal saline 1000ml 250 ML IV PRN (08:00)
[2018-02-09] MEDS: cloNIDine 0.1 mg tablet PO SCH ×2 (08:22→20:44)
[2018-02-09] MEDS: diltiazem CD 120mg capsule (once-daily) PO SCH (08:22)
[2018-02-09] MEDS: pantoprazole 40mg Tablet.DR PO SCH ×2 (08:22→20:41)
[2018-02-09] MEDS: docusate sod 100mg capsule PO SCH ×2 (08:22→20:44)
[2018-02-09] MEDS ORDERED: LIDOcaine 1%/PF (10mg/ml) 5ml vial SQ ONE (09:20)
[2018-02-09] MEDS ORDERED: fentaNYL/PF 50MCG/1 ML 2ML syringe IV PRN (09:20)
[2018-02-09] MEDS ORDERED: heparin 1,000 units/ml 10ml inj ICATH ONE (09:20)
[2018-02-09] MEDS ORDERED: midazolam 2 mg/2 ml injection IV PRN (09:20)
[2018-02-09] MEDS ORDERED: fentaNYL/PF 50MCG/1 ML 2ML syringe ONE (09:22)
[2018-02-09] MEDS ORDERED: heparin 1,000unit/ml 10ml vial 10 ML ONE (09:22)
[2018-02-09] MEDS ORDERED: midazolam 2 mg/2 ml injection ONE (09:22)
[2018-02-09] MEDS ORDERED: LIDOcaine 1%/PF (10mg/ml) 5ml vial ONE (09:22)
[2018-02-09] MEDS: atorvastatin 20mg tablet PO SCH (20:43)
[2018-02-09] MEDS: doxazosin mesylate 2mg tablet PO SCH (20:44)
[2018-02-09] MEDS: heparin, porcine 5000 units/ml vial SQ SCH (20:47)
[2018-02-09] MEDS: insulin glargine (Lantus) pen - multi-dose SQ SCH (21:14)
[2018-02-10] MEDS: hydrALAZINE 25 MG tablet PO SCH ×3 (00:10→16:00)
[2018-02-10 02:00] VITALS: BP 136/91
[2018-02-10 06:00] VITALS: BP 168/72
[2018-02-10 06:22] LABS: BASOPHILS % (AUTO) 0.5 % (0-1); EOSINOPHILS # (AUTO) 0.2 X10'3 (0-0.9); EOSINOPHILS % (AUTO) 3.5 % (0-6); HEMATOCRIT 25.7 % (42.0-52.0); HEMOGLOBIN 8.6 g/dl (14.0-17.9); LYMPHOCYTES # (AUTO) 2.1 X10'3 (1.1-4.8); LYMPHOCYTES % (AUTO) 28.6 % (21-51); MEAN CORPUSCULAR HEMOGLOBIN 29.3 PG (27.0-31.0); MEAN CORPUSCULAR HGB CONC 33.5 % (33.0-36.5); MEAN CORPUSCULAR VOLUME 87.7 FL (78-98); MEAN PLATELET VOLUME 9.2 FL (7.4-10.4); MONOCYTES # (AUTO) 0.6 X10'3 (0-0.9); MONOCYTES % (AUTO) 8.1 % (2-12); NEUTROPHILS # (AUTO) 4.3 X10'3 (1.8-7.7); NEUTROPHILS % (AUTO) 59.3 % (42-75); PLATELET COUNT 217 X10'3 (140-440); RED BLOOD COUNT 2.93 X10'6 (4.70-6.10); RED CELL DISTRIBUTION WIDTH 15.9 % (11.5-14.5); WHITE BLOOD COUNT 7.2 X10'3 (4.5-11.0)
[2018-02-10 06:32] LABS: ALBUMIN 1.5 G/DL (3.4-5.0); ANION GAP 12 (8-16); BLOOD UREA NITROGEN 61 MG/DL (7-18); CALCIUM 6.8 MG/DL (8.5-10.1); CHLORIDE 108 MMOL/L (99-107); GLUCOSE 124 MG/DL (70-104); POTASSIUM 3.9 MMOL/L (3.5-5.1); SODIUM 141 MMOL/L (135-145); TOTAL CARBON DIOXIDE 21.1 MMOL/L (24-32); eGFR 13 ML/MIN
[2018-02-10] MEDS: docusate sod 100mg capsule PO SCH (07:57)
[2018-02-10] MEDS: diltiazem CD 120mg capsule (once-daily) PO SCH (07:57)
[2018-02-10] MEDS: cloNIDine 0.1 mg tablet PO SCH (07:59)
[2018-02-10] MEDS: pantoprazole 40mg Tablet.DR PO SCH (07:59)
[2018-02-10] MEDS ORDERED: normal saline 1000ml 250 ML IV PRN (08:00)
[2018-02-10] MEDS ORDERED: epoetin 20,000 units/ml inj IV ONE (08:00)
[2018-02-10] MEDS ORDERED: heparin 1,000unit/ml 10ml vial 10 ML IV ONE (08:00)
[2018-02-10] MEDS ORDERED: heparin 1,000 units/ml 10ml inj HE ONE ×2 (08:00)
[2018-02-10] MEDS: heparin, porcine 5000 units/ml vial SQ SCH (08:01)
[2018-02-10 11:00] VITALS: BP 163/72
[2018-02-10 11:13] LABS: HBSAG SCREEN Negative (Negative)
[2018-02-10 15:00] VITALS: BP 150/66
[2018-02-10] MEDS ORDERED: HYDR-4069 PO (16:19)
[2018-02-10 19:00] VITALS: BP 168/85
[2018-02-14 13:18] LABS: HEP B CORE AB, TOT Negative (Negative)
== END 2018-02-10 20:00 | disposition home or self-care (01) | DRG 469 ==
LOC: ER 13:20 → ED HOLD 15:27 → EDBEDREQ 02-09 00:21 → PCU 3S 02-09 00:30 → CMPBEDREQ 02-09 01:25
PROVIDERS: ADMIT Internal Medicine; ATTEND Internal Medicine
PROC: 0JH63XZ Insertion of Tunneled Vascular Access Device into Chest Subcutaneous Tissue and Fascia, Percutaneous Approach (ICD-10-PCS; principal; 2018-02-09)
PROC: 02HV33Z Insertion of Infusion Device into Superior Vena Cava, Percutaneous Approach (ICD-10-PCS; 2018-02-09)
PROC: B548ZZA Ultrasonography of Superior Vena Cava, Guidance (ICD-10-PCS; 2018-02-09)
PROC: 5A1D70Z Performance of Urinary Filtration, Intermittent, Less than 6 Hours Per Day (ICD-10-PCS; 2018-02-09)
PROC: 5A1D70Z Performance of Urinary Filtration, Intermittent, Less than 6 Hours Per Day (ICD-10-PCS; 2018-02-10)
DX: N17.9 Acute kidney failure, unspecified (principal); I13.2 Hypertensive heart and chronic kidney disease with heart failure and with stage 5 chronic kidney disease, or end stage renal disease; E87.2 Acidosis; E11.22 Type 2 diabetes mellitus with diabetic chronic kidney disease; I48.91 Unspecified atrial fibrillation; I69.351 Hemiplegia and hemiparesis following cerebral infarction affecting right dominant side; E87.5 Hyperkalemia; D64.9 Anemia, unspecified; K59.00 Constipation, unspecified; I50.9 Heart failure, unspecified; K21.9 Gastro-esophageal reflux disease without esophagitis; N18.6 End stage renal disease; Z99.2 Dependence on renal dialysis; Z79.899 Other long term (current) drug therapy; Z87.891 Personal history of nicotine dependence
CPT/HCPCS: 36415; 36558; 74022; 76937; 77001; 80048; 80053; 81001; 82948; 83690; 83735; 84100; 85025; 86704; 86706; 87070; 87340; 93005; 93306; 93930; 93970; 99152; 99153; 99285; A4620; C1750; C1758; C1894; G0257; J0885; J1644; J1815; J2001; J2250; J3010; J7030

== ENCOUNTER 2018-11-15 08:10 | Day surgery (SDC) | payer MEDICARE, MEDICAID ==
[~2018-11-15] VITALS: Ht 167.6 cm; Wt 77.3 kg
[~2018-11-15 08:10] MED LIST changes: -EMPA10TA PO; -GLIM1TAB46 PO
[2018-11-15 08:23] VITALS: BP 221/97
[2018-11-15] MEDS ORDERED: CLON0.1T20 (08:37)
[2018-11-15] MEDS ORDERED: DOXA2TAB2 PO (08:38)
[2018-11-15] MEDS ORDERED: HYDR-4070 PO (08:38)
[2018-11-15] MEDS ORDERED: METF-436 PO (08:39)
[2018-11-15] MEDS ORDERED: PANT-47 PO (08:39)
[2018-11-15] MEDS ORDERED: MIDAZolam 5mg/5ml vial ONE (09:18)
[2018-11-15] MEDS ORDERED: fentaNYL/PF 50MCG/1 ML 2ML syringe ONE (09:18)
[2018-11-15] MEDS ORDERED: LIDOcaine Viscous 15ml cup ONE (09:18)
[2018-11-15 11:10] VITALS: BP 158/76
[2018-11-15 11:20] VITALS: BP 159/81
[2018-11-15 11:30] VITALS: BP 160/76
[2018-11-15 11:38] VITALS: BP 151/96
== END 2018-11-15 12:00 | disposition home or self-care (01) ==
LOC: GI LAB 08:10
PROVIDERS: ATTEND Internal Medicine Gastroenterology
DX: D12.3 Benign neoplasm of transverse colon (principal); D12.0 Benign neoplasm of cecum; D50.0 Iron deficiency anemia secondary to blood loss (chronic); D50.9 Iron deficiency anemia, unspecified; K29.50 Unspecified chronic gastritis without bleeding; I10 Essential (primary) hypertension; E11.9 Type 2 diabetes mellitus without complications; Z87.19 Personal history of other diseases of the digestive system; Z86.69 Personal history of other diseases of the nervous system and sense organs; Z79.84 Long term (current) use of oral hypoglycemic drugs; Z87.438 Personal history of other diseases of male genital organs; Z86.73 Personal history of transient ischemic attack (TIA), and cerebral infarction without residual deficits; Z98.890 Other specified postprocedural states; Z79.899 Other long term (current) drug therapy
CPT/HCPCS: 43239; 45385; 99153; G0500; J2250; J3010; J7030; 99152; A4620

== ENCOUNTER 2019-07-04 06:28 | Day surgery (SDC) | payer MEDICARE, MEDICAID ==
[~2019-07-04] VITALS: Ht 167.6 cm; Wt 71.9 kg
[~2019-07-04 06:28] MED LIST changes: +CLON0.1T20; -CLON0.1T20 PO; +DILT-94 PO; -DILT240C PO; -DOXA2TAB13 PO; +DOXA2TAB2 PO; -HYDR-4069 PO; +HYDR-4070 PO; +METF-436 PO
[2019-07-04] MEDS ORDERED: normal saline 1000ml 1,000 ML IV PRN (06:55)
[2019-07-04 07:02] VITALS: BP 144/71
[2019-07-04 07:03] LABS: BASOPHILS # (AUTO) 0.1 X10'3 (0-0.2); BASOPHILS % (AUTO) 0.6 % (0-1); EOSINOPHILS # (AUTO) 0.2 X10'3 (0-0.9); EOSINOPHILS % (AUTO) 2.5 % (0-6); HEMATOCRIT 38.3 % (42.0-52.0); HEMOGLOBIN 12.6 g/dl (14.0-17.9); LYMPHOCYTES # (AUTO) 1.9 X10'3 (1.1-4.8); MEAN CORPUSCULAR HGB CONC 32.9 g/dL (33.0-36.5); MEAN CORPUSCULAR VOLUME 91.3 FL (78-98); MEAN PLATELET VOLUME 7.9 FL (7.4-10.4); MONOCYTES # (AUTO) 0.7 X10'3 (0-0.9); MONOCYTES % (AUTO) 8.1 % (2-12); NEUTROPHILS # (AUTO) 5.7 X10'3 (1.8-7.7); NEUTROPHILS % (AUTO) 66.8 % (42-75); PLATELET COUNT 210 X10'3 (140-440); RED CELL DISTRIBUTION WIDTH 17.1 % (11.5-14.5); WHITE BLOOD COUNT 8.6 X10'3 (4.5-11.0)
[2019-07-04 07:09] LABS: ALBUMIN 3.6 G/DL (3.4-5.0); ANION GAP 12 (8-16); BLOOD UREA NITROGEN 81 MG/DL (7-18); BUN/CREATININE RATIO 9.4 (5.4-32.0); CHLORIDE 100 MMOL/L (99-107); CREATININE 8.58 MG/DL (0.60-1.10); GLUCOSE 159 MG/DL (70-104); POTASSIUM 5.1 MMOL/L (3.5-5.1); SODIUM 141 MMOL/L (135-145); TOTAL CARBON DIOXIDE 28.9 MMOL/L (24-32); eGFR 6 ML/MIN
[2019-07-04] MEDS ORDERED: DOCU100C40 PO (07:12)
[2019-07-04] MEDS ORDERED: [UNRECOGNIZED DRUG - OTHER] (07:12)
[2019-07-04] MEDS ORDERED: IRON PO (07:12)
[2019-07-04] MEDS ORDERED: PHO667C PO (07:12)
[2019-07-04] MEDS ORDERED: FURO80TA87 PO (07:12)
[2019-07-04] MEDS ORDERED: OMEP40CA13 PO (07:12)
[2019-07-04] MEDS ORDERED: LOSA50TA3 PO (07:12)
[2019-07-04] MEDS ORDERED: FOLI0.8T7 PO (07:12)
[2019-07-04] MEDS ORDERED: MINO2.5T19 PO (07:12)
[2019-07-04] MEDS ORDERED: LIDOcaine 1%/PF 5ML 10 MG/ML VIAL SQ ONE (08:30)
[2019-07-04] MEDS ORDERED: midazolam 2 mg/2 ml injection IV PRN (08:30)
[2019-07-04] MEDS ORDERED: fentaNYL/PF 50MCG/1 ML 2ML syringe IV PRN (08:30)
[2019-07-04] MEDS ORDERED: heparin 1,000 UNITS/NS 500ml 500 ML ICATH ONE (08:30)
[2019-07-04] MEDS ORDERED: heparin 1,000 UNITS/NS 500ml 500 ML ONE (08:38)
[2019-07-04] MEDS ORDERED: midazolam 2 mg/2 ml injection ONE (08:38)
[2019-07-04] MEDS ORDERED: fentaNYL/PF 50MCG/1 ML 2ML syringe ONE ×2 (08:38→09:36)
[2019-07-04] MEDS ORDERED: LIDOcaine 1%/PF 5ML 10 MG/ML VIAL ONE (08:38)
[2019-07-04] MEDS ORDERED: iohexol 300mg/ml 100ml inj. ONE (08:47)
[2019-07-04 10:24] VITALS: BP 133/73
[2019-07-04 10:30] VITALS: BP 160/73
[2019-07-04 10:45] VITALS: BP 143/67
[2019-07-04 11:00] VITALS: BP 131/62
[2019-07-04 11:15] VITALS: BP 134/62
== END 2019-07-04 11:30 | disposition home or self-care (01) ==
LOC: SSTAY O 06:28
PROVIDERS: ATTEND Radiology Diagnostic Radiology
DX: T82.858A Stenosis of other vascular prosthetic devices, implants and grafts, initial encounter (principal); E11.22 Type 2 diabetes mellitus with diabetic chronic kidney disease; N18.4 Chronic kidney disease, stage 4 (severe); D64.89 Other specified anemias; I69.959 Hemiplegia and hemiparesis following unspecified cerebrovascular disease affecting unspecified side; Z87.891 Personal history of nicotine dependence; Z98.890 Other specified postprocedural states; Z79.899 Other long term (current) drug therapy; Y83.8 Other surgical procedures as the cause of abnormal reaction of the patient, or of later complication, without mention of misadventure at the time of the procedure; Y92.89 Other specified places as the place of occurrence of the external cause
CPT/HCPCS: 36415; 36902; 76937; 80048; 85025; 85610; 99152; 99153; C1725; C1769; C1894; J1644; J2250; J3010; J7030; Q9967

== ENCOUNTER 2019-09-28 06:25 | Day surgery (SDC) | payer MEDICARE, MEDICAID ==
[~2019-09-28] VITALS: Ht 167.6 cm; Wt 73.6 kg
[~2019-09-28 06:25] MED LIST changes: +CLON0.1T2; -CLON0.1T20; +DOCU100C40 PO; +FOLI0.8T7 PO; +FURO80TA87 PO; +IRON PO; +LOSA50TA3 PO; -METF-436 PO; +MINO2.5T19 PO; +OMEP40CA13 PO; -PANT-47 PO; +PHO667C PO; -VALS1TAB79 PO; +[UNRECOGNIZED DRUG - OTHER]
[2019-09-28] MEDS ORDERED: normal saline 1000ml 1,000 ML IV SCH (06:50)
[2019-09-28] MEDS ORDERED: CLON0.1T PO (07:21)
[2019-09-28] MEDS ORDERED: LOSA100T57 PO (07:21)
[2019-09-28] MEDS ORDERED: DILT180T2 PO (07:21)
[2019-09-28] MEDS ORDERED: HYDR100T27 PO (07:21)
[2019-09-28] MEDS ORDERED: DOCU100C41 PO (07:21)
[2019-09-28 07:24] VITALS: BP 151/77
[2019-09-28 07:35] LABS: BASOPHILS # (AUTO) 0.1 X10'3 (0-0.2); BASOPHILS % (AUTO) 0.6 % (0-1); EOSINOPHILS # (AUTO) 0.7 X10'3 (0-0.9); EOSINOPHILS % (AUTO) 7.8 % (0-6); HEMATOCRIT 32.4 % (42.0-52.0); HEMOGLOBIN 10.8 g/dl (14.0-17.9); LYMPHOCYTES # (AUTO) 1.9 X10'3 (1.1-4.8); LYMPHOCYTES % (AUTO) 21.5 % (21-51); MEAN CORPUSCULAR HEMOGLOBIN 31.6 PG (27.0-31.0); MEAN CORPUSCULAR HGB CONC 33.3 g/dL (33.0-36.5); MEAN CORPUSCULAR VOLUME 94.8 FL (78-98); MONOCYTES # (AUTO) 0.8 X10'3 (0-0.9); MONOCYTES % (AUTO) 9.2 % (2-12); NEUTROPHILS # (AUTO) 5.3 X10'3 (1.8-7.7); NEUTROPHILS % (AUTO) 60.9 % (42-75); PLATELET COUNT 191 X10'3 (140-440); RED BLOOD COUNT 3.42 X10'6 (4.70-6.10); RED CELL DISTRIBUTION WIDTH 14.8 % (11.5-14.5); WHITE BLOOD COUNT 8.8 X10'3 (4.5-11.0)
[2019-09-28 07:41] LABS: ANION GAP 7 (8-16); BLOOD UREA NITROGEN 46 MG/DL (7-18); BUN/CREATININE RATIO 6.7 (5.4-32.0); CALCIUM 8.6 MG/DL (8.5-10.1); CHLORIDE 102 MMOL/L (99-107); CREATININE 6.91 MG/DL (0.60-1.10); GLUCOSE 119 MG/DL (70-104); POTASSIUM 5.1 MMOL/L (3.5-5.1); SODIUM 140 MMOL/L (135-145); TOTAL CARBON DIOXIDE 30.6 MMOL/L (24-32); eGFR 8 ML/MIN
[2019-09-28] MEDS ORDERED: iohexol 300mg/ml 100ml inj. ONE ×2 (08:43→08:45)
[2019-09-28] MEDS ORDERED: LIDOcaine 1%/PF 5ML 10 MG/ML VIAL ONE (08:45)
[2019-09-28] MEDS ORDERED: fentaNYL/PF 50MCG/1 ML 2ML syringe ONE (08:45)
[2019-09-28] MEDS ORDERED: midazolam 2 mg/2 ml injection ONE (08:45)
[2019-09-28 10:04] VITALS: BP 156/83
[2019-09-28 10:15] VITALS: BP 139/55
[2019-09-28 10:30] VITALS: BP 138/65
[2019-09-28 10:45] VITALS: BP 126/69
[2019-09-28 11:15] VITALS: BP 144/79
== END 2019-09-28 11:30 | disposition home or self-care (01) ==
LOC: SSTAY O 06:25
PROVIDERS: ATTEND Radiology Vascular & Interventional Radiology
DX: T82.858A Stenosis of other vascular prosthetic devices, implants and grafts, initial encounter (principal); E11.22 Type 2 diabetes mellitus with diabetic chronic kidney disease; N18.4 Chronic kidney disease, stage 4 (severe); Z87.891 Personal history of nicotine dependence; D64.89 Other specified anemias; I69.951 Hemiplegia and hemiparesis following unspecified cerebrovascular disease affecting right dominant side; Y83.2 Surgical operation with anastomosis, bypass or graft as the cause of abnormal reaction of the patient, or of later complication, without mention of misadventure at the time of the procedure; Y92.89 Other specified places as the place of occurrence of the external cause; Z79.899 Other long term (current) drug therapy; Z98.890 Other specified postprocedural states
CPT/HCPCS: 36415; 36902; 76937; 80048; 85025; 99152; 99153; C1725; C1769; C1894; J2250; J3010; Q9967; J7030

== ENCOUNTER 2019-10-31 06:06 | Day surgery (SDC) | payer MEDICARE, MEDICAID ==
[~2019-10-31] VITALS: Ht 167.6 cm; Wt 77.3 kg
[2019-10-31] VITALS (10 sets, daily range): BP systolic 140–164; BP diastolic 60–76
[~2019-10-31 06:06] MED LIST changes: +CLON0.1T PO; -CLON0.1T2; -DILT-94 PO; +DILT180T2 PO; -DOCU100C40 PO; +DOCU100C41 PO; -HYDR-4070 PO; +HYDR100T27 PO; +LOSA100T57 PO; -LOSA50TA3 PO
[2019-10-31 08:09] LABS: BASOPHILS % (AUTO) 0.4 % (0-1); EOSINOPHILS # (AUTO) 0.2 X10'3 (0-0.9); EOSINOPHILS % (AUTO) 1.9 % (0-6); LYMPHOCYTES # (AUTO) 1.9 X10'3 (1.1-4.8); LYMPHOCYTES % (AUTO) 21.6 % (21-51); MEAN CORPUSCULAR HEMOGLOBIN 31.9 PG (27.0-31.0); MEAN CORPUSCULAR HGB CONC 33.7 g/dL (33.0-36.5); MEAN CORPUSCULAR VOLUME 94.7 FL (78-98); MEAN PLATELET VOLUME 7.7 FL (7.4-10.4); MONOCYTES # (AUTO) 0.9 X10'3 (0-0.9); MONOCYTES % (AUTO) 9.7 % (2-12); NEUTROPHILS # (AUTO) 5.8 X10'3 (1.8-7.7); NEUTROPHILS % (AUTO) 66.4 % (42-75); PRE OP HEMATOCRIT 32.2 % (42.0-52.0); PRE OP PLATELET COUNT 237 X10'3 (140-440); RED CELL DISTRIBUTION WIDTH 15.1 % (11.5-14.5)
[2019-10-31 08:12] LABS: PRE OP HEMOGLOBIN 10.9 g/dL (14.0-17.9)
[2019-10-31 08:15] LABS: ALBUMIN 3.3 G/DL (3.4-5.0); BLOOD UREA NITROGEN 48 MG/DL (7-18); BUN/CREATININE RATIO 7.7 (5.4-32.0); CALCIUM 8.7 MG/DL (8.5-10.1); CHLORIDE 101 MMOL/L (99-107); CREATININE 6.26 MG/DL (0.60-1.10); PRE OP ANION GAP 5 (8-16); PRE OP GLUCOSE 157 MG/DL (70-104); PRE OP POTASSIUM 5.1 MMOL/L (3.4-5.1); PRE OP SODIUM 138 MMOL/L (135-145); TOTAL CARBON DIOXIDE 31.6 MMOL/L (24-32); eGFR 9 ML/MIN
[2019-10-31 08:20] LABS: PRE OP PARTIAL THROMB. TIME 30 SECONDS (22-32)
[2019-10-31] MEDS ORDERED: iohexol 300mg/ml 100ml inj. ONE (09:19)
[2019-10-31] MEDS ORDERED: heparin 1,000 UNITS/NS 500ml 500 ML ONE (09:19)
[2019-10-31] MEDS ORDERED: LIDOcaine 1%/PF 5ML 10 MG/ML VIAL ONE ×2 (09:20→09:27)
[2019-10-31] MEDS ORDERED: heparin 1,000 UNITS/NS 500ml 500 ML ICATH ONE (09:25)
[2019-10-31] MEDS ORDERED: midazolam 2 mg/2 ml injection IV PRN (09:25)
[2019-10-31] MEDS ORDERED: LIDOcaine 1%/PF 5ML 10 MG/ML VIAL SQ ONE (09:25)
[2019-10-31] MEDS ORDERED: fentaNYL/PF 50MCG/1 ML 2ML syringe IV PRN (09:25)
[2019-10-31] MEDS ORDERED: midazolam 2 mg/2 ml injection ONE ×2 (09:27→09:58)
[2019-10-31] MEDS ORDERED: fentaNYL/PF 50MCG/1 ML 2ML syringe ONE ×2 (09:27→09:58)
[2019-10-31] MEDS ORDERED: nitroGLYCERIN-Tridil 50MG/D5W 250 ML IV ONE (10:19)
== END 2019-10-31 12:00 | disposition home or self-care (01) ==
LOC: SSTAY O 06:06
PROVIDERS: ATTEND Radiology Diagnostic Radiology
DX: T82.858A Stenosis of other vascular prosthetic devices, implants and grafts, initial encounter (principal); E11.22 Type 2 diabetes mellitus with diabetic chronic kidney disease; N18.9 Chronic kidney disease, unspecified; Y83.2 Surgical operation with anastomosis, bypass or graft as the cause of abnormal reaction of the patient, or of later complication, without mention of misadventure at the time of the procedure; Y92.89 Other specified places as the place of occurrence of the external cause
CPT/HCPCS: 36415; 36902; 76937; 80048; 85025; 85610; 85730; 99152; 99153; C1725; C1769; C1894; J1644; J2250; J3010; J7040; Q9967; J3490

== ENCOUNTER 2020-06-13 06:30 | Day surgery (SDC) | payer MEDICARE, MEDICAID ==
[~2020-06-13] VITALS: Ht 167.6 cm; Wt 66.8 kg
[2020-06-13 06:45] VITALS: BP 144/85
[2020-06-13] MEDS ORDERED: normal saline 1000ml 1,000 ML IV SCH (07:00)
[2020-06-13 07:35] LABS: BASOPHILS # (AUTO) 0.1 X10'3 (0-0.2); BASOPHILS % (AUTO) 0.6 % (0-1); EOSINOPHILS # (AUTO) 0.6 X10'3 (0-0.9); EOSINOPHILS % (AUTO) 5.6 % (0-6); HEMATOCRIT 36.8 % (42.0-52.0); HEMOGLOBIN 12.2 g/dl (14.0-17.9); LYMPHOCYTES # (AUTO) 2.3 X10'3 (1.1-4.8); LYMPHOCYTES % (AUTO) 21.1 % (21-51); MEAN CORPUSCULAR HEMOGLOBIN 31.3 PG (27.0-31.0); MEAN CORPUSCULAR HGB CONC 33.2 g/dL (33.0-36.5); MEAN CORPUSCULAR VOLUME 94.4 FL (78-98); MEAN PLATELET VOLUME 7.7 FL (7.4-10.4); MONOCYTES # (AUTO) 0.9 X10'3 (0-0.9); MONOCYTES % (AUTO) 8.1 % (2-12); NEUTROPHILS % (AUTO) 64.6 % (42-75); PLATELET COUNT 337 X10'3 (140-440); RED CELL DISTRIBUTION WIDTH 14.1 % (11.5-14.5); WHITE BLOOD COUNT 10.9 X10'3 (4.5-11.0)
[2020-06-13 07:39] LABS: ALBUMIN 3.7 G/DL (3.4-5.0); ANION GAP 9 (8-16); BLOOD UREA NITROGEN 56 MG/DL (7-18); BUN/CREATININE RATIO 6.7 (5.4-32.0); CALCIUM 9.8 MG/DL (8.5-10.1); CHLORIDE 95 MMOL/L (99-107); GLUCOSE 131 MG/DL (70-104); POTASSIUM 5.2 MMOL/L (3.5-5.1); SODIUM 134 MMOL/L (135-145); TOTAL CARBON DIOXIDE 29.7 MMOL/L (24-32); eGFR 7 ML/MIN
[2020-06-13] MEDS ORDERED: LIDOcaine 1%/PF 5ML 10 MG/ML VIAL ONE (08:29)
[2020-06-13] MEDS ORDERED: iohexol 300mg/ml 100ml inj. ONE (08:30)
[2020-06-13] MEDS ORDERED: fentaNYL/PF 50MCG/1 ML 2ML syringe ONE ×2 (08:30→09:12)
[2020-06-13] MEDS ORDERED: midazolam 2 mg/2 ml injection ONE ×2 (08:30→09:11)
[2020-06-13] MEDS ORDERED: heparin 1,000 UNITS/NS 500ml 500 ML ONE (08:30)
[2020-06-13 09:50] VITALS: BP 186/92
[2020-06-13 10:09] VITALS: BP 165/72
[2020-06-13 10:25] VITALS: BP 160/89
[2020-06-13 10:40] VITALS: BP 173/84
[2020-06-13 10:55] VITALS: BP 196/93
== END 2020-06-13 11:20 | disposition home or self-care (01) ==
LOC: SSTAY O 06:30
PROVIDERS: ATTEND Radiology Vascular & Interventional Radiology
DX: T82.858A Stenosis of other vascular prosthetic devices, implants and grafts, initial encounter (principal); I12.0 Hypertensive chronic kidney disease with stage 5 chronic kidney disease or end stage renal disease; N18.6 End stage renal disease; K21.9 Gastro-esophageal reflux disease without esophagitis; Z98.890 Other specified postprocedural states; Z79.01 Long term (current) use of anticoagulants; Z11.59 Encounter for screening for other viral diseases; Z79.899 Other long term (current) drug therapy; Y83.2 Surgical operation with anastomosis, bypass or graft as the cause of abnormal reaction of the patient, or of later complication, without mention of misadventure at the time of the procedure; Y92.89 Other specified places as the place of occurrence of the external cause
CPT/HCPCS: 36415; 36902; 80048; 85025; 85610; 99152; 99153; C1725; C1769; C1894; J1644; J2250; J3010; Q9967; U0003